=== PATIENT | male | born 1965 | race Caucasian/White ===

== ENCOUNTER 2021-09-01 09:15 | Inpatient (IN) | payer MEDICARE, OTHER ==
[~2021-09-01] VITALS: Ht 177.8 cm; Wt 59.0 kg
--- NOTE | 2021-09-01 09:30 | NUR ---
unable to do proper ekg on the pt, unable to hold still. will try later when pt is more comfortable.
[2021-09-01] MEDS ORDERED: PANTOPRAZOLE SODIUM 40 MG VIAL ONE ×4 (09:40→23:45)
[2021-09-01] MEDS ORDERED: ONDANSETRON 4 MG/2 ML VIAL ONE ×3 (09:41→16:04)
[2021-09-01] MEDS ORDERED: IV NORMAL SALINE 1000 ML BAG IV ONE (09:45)
[2021-09-01] MEDS ORDERED: ONDANSETRON 4 MG/2 ML VIAL IV ONE ×2 (09:45→10:00)
[2021-09-01] MEDS ORDERED: PANTOPRAZOLE SODIUM 40 MG VIAL IV ONE (09:45)
[2021-09-01] MEDS ORDERED: PANTOPRAZOLE SODIUM IV 80 MG in IV DEXTROSE 5% 100 ML IV ONE ×2 (10:00→13:45)
[2021-09-01 10:14] LABS: HEMATOCRIT 31.4 % (36.7-47.1); MEAN CORPUSCULAR HEMOGLOBIN 27.5 uug (23.8-33.4); MEAN CORPUSCULAR VOLUME 83.9 fL (73.0-96.2); PLATELET COUNT (AUTO) 327 K/uL (152-348)
[2021-09-01 10:20] LABS: CARBON DIOXIDE 34 mmol/L (21-32); CHLORIDE 99 mmol/L (98-107); CREATININE 0.8 mg/dL (0.6-1.3); GLUCOSE 121 mg/dL (74-106); POTASSIUM 4.1 mmol/L (3.5-5.1); UREA NITROGEN, BLOOD 45 mg/dL (7-18)
[2021-09-01 10:28] LABS: ALANINE AMINOTRANSFERASE 30 U/L (16-63); ALKALINE PHOSPHATASE 54 U/L (50-136); ASPARTATE AMINOTRANSFERASE 12 U/L (15-37); BILIRUBIN,DIRECT 0.1 mg/dL (0.0-0.2); BILIRUBIN,TOTAL 0.2 mg/dL (0.2-1.0); LIPASE 155 U/L (73-393); TOTAL PROTEIN, SERUM 6.3 g/dL (6.4-8.2)
[2021-09-01 10:29] LABS: ETHANOL < 3 MG/DL (0-0)
[2021-09-01 11:10] LABS: *BILIRUBIN,URIN NEGATIVE (NEGATIVE); *BLOOD, URINE NEGATIVE (NEGATIVE); *CLARITY,URINE CLEAR (CLEAR); *COLOR,URINE YELLOW (YELLOW); *KETONES,URINE TRACE (NEGATIVE); LEUKOCYTE ESTERASE ,URINE NEGATIVE (NEGATIVE); NITRITE, URINE NEGATIVE (NEGATIVE); UGLUCOSE NEGATIVE (NEGATIVE)
[2021-09-01 11:25] LABS: BACTERIA,URINE NONE SEEN /HPF (NONE SEEN); RBC,URINE NONE SEEN /HPF (0-3); SQUAMOUS EPITHELIAL CELL,UR FEW /HPF (NONE SEEN); WBC,URINE 0-3 /HPF (0-3)
[2021-09-01 11:26] LABS: *AMPHETAMINE, URINE NEGATIVE (NEGATIVE); *CANNABINOID, URINE POSITIVE (NEGATIVE); *COCCAINE, URINE NEGATIVE (NEGATIVE); *OPIATE, URINE NEGATIVE (NEGATIVE); *PHENCYCLIDINE SCREEN,URINE NEGATIVE (NEGATIVE)
[2021-09-01 12:20] LABS: HEMATOCRIT 23.5 % (36.7-47.1); MEAN CORPUSCULAR VOLUME 83.8 fL (73.0-96.2); PLATELET COUNT (AUTO) 364 K/uL (152-348)
--- NOTE | 2021-09-01 13:09 | NUR ---
PT REFUSED LUNCH AND SAID THAT HE NEEDS TO SLEEP.
[2021-09-01] MEDS ORDERED: REMEDY ESSENTIAL ZINC PASTE 113 GM TP PRN (13:45)
[2021-09-01] MEDS ORDERED: MAGNESIUM HYDROXIDE 30 ML LIQUID UDC PO PRN (13:45)
[2021-09-01] MEDS ORDERED: ONDANSETRON 4 MG/2 ML VIAL IV PRN (13:45)
[2021-09-01] MEDS ORDERED: ACETAMINOPHEN 325 MG TABLET PO PRN (13:45)
[2021-09-01] MEDS: PANTOPRAZOLE SODIUM IV 80 MG in IV DEXTROSE 5% 500 ML IV SCH (14:52)
[2021-09-01] MEDS ORDERED: MORPHINE SULFATE 4 MG/1 ML DISP.SYRIN ONE (16:03)
[2021-09-01] MEDS ORDERED: HYDROMORPHONE 2 MG/1 ML DISP.SYRIN ONE ×2 (16:08→16:15)
[2021-09-01 17:24] LABS: HEMATOCRIT 20.1 % (36.7-47.1)
--- NOTE | 2021-09-01 17:35 | NUR ---
Patient tranf. to CCU bed3. per MD hammer.
[2021-09-01 18:00] VITALS: BP 91/60
[2021-09-01] MEDS ORDERED: IV NS 1000 ML 1,000 ML IV ONE (18:30)
[2021-09-01 19:00] VITALS: BP 95/54
--- NOTE | 2021-09-01 19:00 | NUR ---
Received report. Patient is awake, alert, appears pale looking. Denies pain at this time. No signs of acute distress. LFA 20G with ongoing Protonix drip 80mg @50mls/hr, D5 1/2NS @75mls/hr. Body assessment done. Will continue to monitor closely.
--- NOTE | 2021-09-01 19:19 | NUR ---
While checking blood and informing patient he will be receiving blood unit. patient changes his mind is refusing blood. informed Irene right away of refusal of blood. She came to talk to patient of high risk of refusing blood. Patient continues to refuse the blood transfusion and informed him that he had been spoken to and obtain consent and did not state he did not want blood transfusion and continued to sign the consent with aknowledgment. Will attempt to ask again at a later time. he states he will think about having transfusion. Also states that he has never had a blood transfusion before in previous events of GI Bleeding and has been intubated before. He states no blood for now and that he will think about it.
--- NOTE | 2021-09-01 19:30 | NUR ---
spoke to patient again and informed of labs indicating that he continues to lose blood. patient still refuses blood. Patient agrees to change code status at this point. verified code status change with 2 other nurses at bedside and he agrees to DNR status.
[2021-09-01 20:00] VITALS: BP 100/61
[2021-09-01 20:41] LABS: HEMATOCRIT 15.6 % (36.7-47.1)
[2021-09-01 21:00] VITALS: BP 94/59
[2021-09-01] MEDS: IV D5 1/2 NS 1000 ML 1,000 ML IV PRN (21:00)
[2021-09-01 22:00] VITALS: BP 111/73
[2021-09-01 23:00] VITALS: BP 105/66
--- NOTE | 2021-09-01 23:30 | NUR ---
Spoke with Dr Anderson, report given. Asked patient for consent of upper GI endoscopy. Patient stated, "I will think about it. I am dealing my health in a holistic way." Dr Anderson made aware.
[2021-09-02] VITALS (12 sets, daily range): BP systolic 85–118; BP diastolic 50–72
[2021-09-02] MEDS: PANTOPRAZOLE SODIUM IV 80 MG in IV DEXTROSE 5% 500 ML IV SCH ×2 (00:01→10:22)
[2021-09-02 00:44] LABS: HEMATOCRIT 16.3 % (36.7-47.1)
--- NOTE | 2021-09-02 00:45 | NUR ---
Lab called and spoke with Gabriel regarding critical lab Hgb 5.5, Hct 16.3. Called [facility] and spoke with Dr Cotto re: critical labs and that patient refused to be transfused. Dr Cotto made aware with no new orders.
--- NOTE | 2021-09-02 03:17 | NUR ---
Offered patient to give bath, however, patient refused stating, "No. I'm fine."
--- NOTE | 2021-09-02 04:00 | NUR ---
Patient refused to be drawn blood.
--- NOTE | 2021-09-02 06:22 | NUR ---
Patient refused to be placed back on the monitor.
--- NOTE | 2021-09-02 06:45 | NUR ---
Patient placed back on the monitor, HR=76. NAD.
[2021-09-02 08:44] LABS: MEAN CORPUSCULAR HEMOGLOBIN 28.4 uug (23.8-33.4); MEAN CORPUSCULAR VOLUME 84.5 fL (73.0-96.2); PLATELET COUNT (AUTO) 266 K/uL (152-348)
[2021-09-02 08:51] LABS: HEMATOCRIT 16.3 % (36.7-47.1)
[2021-09-02 08:53] LABS: CARBON DIOXIDE 29 mmol/L (21-32); CHLORIDE 104 mmol/L (98-107); CREATININE 0.6 mg/dL (0.6-1.3); GLUCOSE 112 mg/dL (74-106); HEMATOCRIT 16.5 % (36.7-47.1); MAGNESIUM 1.8 mg/dL (1.8-2.4); PHOSPHOROUS 2.8 mg/dL (2.5-4.9); POTASSIUM 3.7 mmol/L (3.5-5.1); UREA NITROGEN, BLOOD 24 mg/dL (7-18)
[2021-09-02 09:03] LABS: THYROID STIMULATING HORMONE 1.374 mIU/mL (0.358-3.740)
[2021-09-02] MEDS: IV D5 1/2 NS 1000 ML 1,000 ML IV PRN (10:14)
--- NOTE | 2021-09-02 10:50 | NUR ---
Attending Rose Bonilla in the unit to examine pt. care plan discussed with pt. and at this time patient become agitated aggressive and threatening staff and refused treatment. Patient educated on the need to have a blood transfusion as well as to have and endoscopy done, despite all education patient refusing.
--- NOTE | 2021-09-02 11:11 | NUR ---
patient is refusing EGD. Irene Receivable Manager spoke to patient, and patient becomming agitated yelling out profanity. joey benjamin called.
--- NOTE | 2021-09-02 11:20 | NUR ---
Patient remains restless agitated and screaming yelling and becomes a disturbance to other patient. removing everything and refusing to be under ICU monitoring Attending still in the unit and joey tadeo called, after pt. become increasingly aggressive and refusing treatment. Joey tadeo called and it was attended by nursing pot lining supervisor, 2 Security guards. 2 rt's. Patient one more time educated on the need to cooperate with medical treatment but pt. now accusing medical staff of been spies and wanting to introduce a camera into his body to monitor his every move.
--- NOTE | 2021-09-02 11:24 | NUR ---
Patient refusing to leave facility after refusing treatment, and continues to be aggressive. With security officers in the unit He continues to refuse treatment and also to sign AMA form and been a disturbance to other patients and visitors. With dispatch supervisor and attending request to call, [employer] to control and escort pt. out.
--- NOTE | 2021-09-02 11:25 | NUR ---
patient is yelling called code cassidy, security and staff at bedside primary doctor as well still in the unit. patient is being escorted out and patient given AMA form that he is also refusing to sign. Now Demanding to call police because he is refusing to be escorted out.
[2021-09-02] MEDS ORDERED: HALOPERIDOL LACTATE 5 MG/1 ML VIAL IM PRN (11:30)
--- NOTE | 2021-09-02 11:35 | NUR ---
patient is becoming increasingly difficult and is having violent verbal outburst. police called room was closed off to prevent further agitation
--- NOTE | 2021-09-02 11:50 | NUR ---
MARLENI in the unit report given to officer Charla Carmen, Officer Ward. with them present and with attending in the unit patient given a list of available [facility], and offered vegetarian food. Patient still refusing treatment and refusing to leave facility.
--- NOTE | 2021-09-02 11:57 | NUR ---
police arrived and are talking to patient verifying information. marquis called to speak to officers as well.
--- NOTE | 2021-09-02 12:24 | NUR ---
MARLENI eyewear manufacturing supervisor officer Zeb in the unit and report given to him by his officers and attending who remains in the unit. Nursing eyewear manufacturing supervisor in.
--- NOTE | 2021-09-02 12:39 | NUR ---
At this time pt. escorted out by [employer] pt. provided with food clothes and shoes also a list of shelters where He can check himself in before 1500. Patient left ambulatory refusing to any treatment until the end.
--- NOTE | 2021-09-02 12:45 | NUR ---
patient was escorted out by lapd at this time. homeless packet was given to patient food and clothing was provided.
[2021-09-06] MEDS ORDERED: FERR325T28 PO (15:55)
[2021-09-06] MEDS ORDERED: SUCR1ORA PO (15:55)
[2021-09-06] MEDS ORDERED: PANT40TA2 PO (15:55)
== END 2021-09-02 13:25 | disposition left against medical advice (07) | DRG 378 ==
LOC: ER 09:15 → TRANSITION 12:48 → CCU 17:11
PROVIDERS: ADMIT Registered Nurse; ATTEND Registered Nurse
DX: K92.2 Gastrointestinal hemorrhage, unspecified (principal); D62 Acute posthemorrhagic anemia; E44.1 Mild protein-calorie malnutrition; Z68.1 Body mass index [BMI] 19.9 or less, adult; D72.829 Elevated white blood cell count, unspecified; F17.210 Nicotine dependence, cigarettes, uncomplicated; Z59.00 Homelessness unspecified; Z87.11 Personal history of peptic ulcer disease; Z91.19 Patient's noncompliance with other medical treatment and regimen; F15.10 Other stimulant abuse, uncomplicated; F12.10 Cannabis abuse, uncomplicated; Z71.6 Tobacco abuse counseling; F19.10 Other psychoactive substance abuse, uncomplicated; Z20.822 Contact with and (suspected) exposure to COVID-19
CPT/HCPCS: 36415; 71045; 83690; 83735; 84100; 84443; 84484; 85018; 85025; 86850; 86900; 86901; 86920; 93005; A4663; C9113; G0378; G0480; J1170; J2270; J2405; J7040; J7060; P9016

== ENCOUNTER 2021-09-03 17:41 | Inpatient (IN) | payer MEDICARE, OTHER ==
[~2021-09-03] VITALS: Ht 175.3 cm; Wt 59.0 kg
[2021-09-03] MEDS ORDERED: IV NORMAL SALINE 1000 ML BAG IV ONE (18:15)
[2021-09-03] MEDS ORDERED: PANTOPRAZOLE SODIUM 40 MG VIAL IV ONE (18:15)
[2021-09-03] MEDS ORDERED: MAG HYDROX/AL HYDROX/SIMETH 30 ML LIQUID UDC PO ONE (18:15)
[2021-09-03] MEDS ORDERED: LIDOCAINE VISCUS 2% 15 ML UDC MM ONE (18:15)
[2021-09-03] MEDS ORDERED: ONDANSETRON 4 MG/2 ML VIAL IV ONE (18:15)
[2021-09-03] MEDS ORDERED: PANTOPRAZOLE SODIUM 40 MG VIAL ONE (18:27)
[2021-09-03] MEDS ORDERED: ONDANSETRON 4 MG/2 ML VIAL ONE (18:27)
[2021-09-03] MEDS ORDERED: LIDOCAINE VISCUS 2% 15 ML UDC ONE (18:28)
[2021-09-03] MEDS ORDERED: MAG HYDROX/AL HYDROX/SIMETH 30 ML LIQUID UDC ONE (18:28)
--- NOTE | 2021-09-03 19:00 | NUR ---
PT IS IN ROOM #4A. DR SAAB EVALUATED THE PT.
[2021-09-03 19:01] LABS: MEAN CORPUSCULAR HEMOGLOBIN 28.7 uug (23.8-33.4); MEAN CORPUSCULAR VOLUME 85.1 fL (73.0-96.2); PLATELET COUNT (AUTO) 332 K/uL (152-348)
[2021-09-03 19:11] LABS: CARBON DIOXIDE 30 mmol/L (21-32); CHLORIDE 104 mmol/L (98-107); CREATININE 0.6 mg/dL (0.6-1.3); GLUCOSE 108 mg/dL (74-106); POTASSIUM 3.4 mmol/L (3.5-5.1); UREA NITROGEN, BLOOD 26 mg/dL (7-18)
[2021-09-03 19:17] LABS: ALANINE AMINOTRANSFERASE 26 U/L (16-63); ALKALINE PHOSPHATASE 45 U/L (50-136); ASPARTATE AMINOTRANSFERASE 12 U/L (15-37); BILIRUBIN,DIRECT < 0.1 mg/dL (0.0-0.2); BILIRUBIN,TOTAL 0.1 mg/dL (0.2-1.0); LIPASE 377 U/L (73-393); TOTAL PROTEIN, SERUM 5.6 g/dL (6.4-8.2)
--- NOTE | 2021-09-03 21:00 | NUR ---
Rose Bonilla BAGGER MEAT into eval patient.
--- NOTE | 2021-09-03 21:42 | NUR ---
Patient agreed to get blood transfusion and signed consent.
[2021-09-03 23:45] LABS: NEUTROPHILS % (MANUAL) 0 % (42-75)
--- NOTE | 2021-09-04 00:58 | NUR ---
Started 1st unit of PRBC at this time.
--- NOTE | 2021-09-04 02:28 | NUR ---
Patient tolerating blood transfusion with no reaction at this time. No distress noted.
--- NOTE | 2021-09-04 03:22 | NUR ---
PRBC infusion completed with no reaction noted.
--- NOTE | 2021-09-04 04:15 | NUR ---
TRANSFERED PATIENT TO 3RD FLOOR VIA WHEELCHAIR WITH NO DISTRESS NOTED.
--- NOTE | 2021-09-04 04:20 | NUR ---
RECEIVED PATIENT FROM ER. PATIENT IS A/O X3. DENIES ANY PAIN UPON ADMISSION TO THE FLOOR. NO RESP. DISTRESS NOTED. H/L INTACT AND PATENT. ORIENTED PATIENT TO ROOM AND CALL LIGHT. CALL LIGHT IN REACH. ALL NEEDS ATTENDED. WILL CONTINUE TO MONITOR AND ASSES. PLACED ON TELE SR.
--- NOTE | 2021-09-04 05:05 | NUR ---
PATIENT ASLEEP IN BED, EASILY AROUSABLE. BP 73/39. PATIENT IS ASYMPTOMATIC. ALL OTHER VSS. CALLED OUT TO MD FOR FURTHER ORDERS. ALL NEEDS ATTENDED.
--- NOTE | 2021-09-04 05:20 | NUR ---
SPOKE WITH DR. PORTILLO IN REGARDS TO ADMISSION ORDERS. INFORMED MD THAT PATIENTS BLOOD PRESSURE IS LOW 73/39. ALL NEEDS ATTENDED.
[2021-09-04] MEDS ORDERED: ACETAMINOPHEN 325 MG TABLET PO PRN (05:30)
[2021-09-04] MEDS ORDERED: REMEDY ESSENTIAL ZINC PASTE 113 GM TP PRN (05:30)
[2021-09-04] MEDS ORDERED: ZOLPIDEM 5 MG TABLET PO PRN (05:30)
[2021-09-04] MEDS ORDERED: ONDANSETRON 4 MG/2 ML VIAL IV PRN (05:30)
[2021-09-04] MEDS ORDERED: IV D5 1/2 NS 1000 ML 1,000 ML IV PRN (05:30)
[2021-09-04] MEDS ORDERED: MAGNESIUM HYDROXIDE 30 ML LIQUID UDC PO PRN (05:30)
[2021-09-04 06:51] VITALS: BP 73/39
[2021-09-04 06:55] VITALS: BP 91/49
[2021-09-04 07:09] LABS: MEAN CORPUSCULAR HEMOGLOBIN 29.2 uug (23.8-33.4)
[2021-09-04 07:11] LABS: MEAN CORPUSCULAR VOLUME 84.2 fL (73.0-96.2); PLATELET COUNT (AUTO) 308 K/uL (152-348)
[2021-09-04 07:28] LABS: BILIRUBIN,TOTAL 0.4 mg/dL (0.2-1.0); CREATININE 0.7 mg/dL (0.6-1.3); POTASSIUM 3.8 mmol/L (3.5-5.1); TOTAL PROTEIN, SERUM 5.1 g/dL (6.4-8.2)
[2021-09-04] MEDS ORDERED: PANTOPRAZOLE SODIUM 40 MG VIAL IV SCH (09:00)
--- NOTE | 2021-09-04 09:25 | NUR ---
Dr. Mccullough notified of Hgb 5.9 and Hct 17.0 no new order at this time.
--- NOTE | 2021-09-04 10:21 | NUR ---
Patient refused to wear his tele monitor. Dr. Mccullough made aware.
--- NOTE | 2021-09-04 11:25 | NUR ---
Went to patient's room to get consent for blood transfusion and noticed his IV pole on the floor dripping and IV tubing cut. Patient refused to have the IV tubing replaced and to resume IV fluids. He also refused blood transfusion. He said he does not need them. Explained risks and benefits but patient still refused and he said get out of the room. Patient is verbally abusive. Notified Dr. Mccullough, with no new order and said call security if necessary. Maintained patient on NPO.
--- NOTE | 2021-09-04 12:05 | NUR ---
Received a call from Dr. Anderson and said to secure consent for EGD and keep patient on NPO. Informed the patient of MD's planned procedure and to to be kept on NPO and patient verbalized understanding and is agreeable.
[2021-09-04 12:08] VITALS: BP 124/57
--- NOTE | 2021-09-04 12:30 | NUR ---
Patient went walking around the hallway then just grabbed a tray from the food cart. Reminded patient of the need to be kept on NPO prior to EGD but patient kept ignoring nurse's explanations. Patient continues to be verbally abusive. Surgery made aware hence procedure cancelled. Dr. Mccullough informed.
[2021-09-04 16:20] VITALS: BP 135/68
--- NOTE | 2021-09-04 18:00 | NUR ---
Noticed patient pulled out his IV line. Offered patient to check and cover the IV site but patient refused and he stated "No, get the fuck out of here. I don't need you."
--- NOTE | 2021-09-04 19:15 | NUR ---
RECEIVED PATIENT AGITATED AND WANT TO GO TO SMOKE DOWN STAIR. CALLED GUARD TO ASSIST WITH THE SITUATION. PATIENT WENT BACK TO HIS ROOM. I TRIED TO TALK TO HIM BUT HE WAS FRUSTRATED AND ANGRY.
--- NOTE | 2021-09-04 19:52 | NUR ---
patient left the hospital. Patient refused to sign AMA.
[2021-09-06] MEDS ORDERED: FERR325T28 PO (15:55)
[2021-09-06] MEDS ORDERED: SUCR1ORA PO (15:55)
[2021-09-06] MEDS ORDERED: PANT40TA2 PO (15:55)
== END 2021-09-04 19:52 | disposition left against medical advice (07) | DRG 377 ==
LOC: ER 17:45 → TELE3 09-04 04:03
PROVIDERS: ADMIT Internal Medicine; ATTEND Internal Medicine
PROC: 30233N1 Transfusion of Nonautologous Red Blood Cells into Peripheral Vein, Percutaneous Approach (ICD-10-PCS; principal; 2021-09-04)
DX: K92.2 Gastrointestinal hemorrhage, unspecified (principal); E43 Unspecified severe protein-calorie malnutrition; D62 Acute posthemorrhagic anemia; F20.0 Paranoid schizophrenia; Z68.1 Body mass index [BMI] 19.9 or less, adult; E87.6 Hypokalemia; F20.9 Schizophrenia, unspecified; Z59.00 Homelessness unspecified; Z87.11 Personal history of peptic ulcer disease; Z91.19 Patient's noncompliance with other medical treatment and regimen; F19.10 Other psychoactive substance abuse, uncomplicated; Z20.822 Contact with and (suspected) exposure to COVID-19
CPT/HCPCS: 36415; 70030-TC; 83690; 85025; 85730; 86920; 93005; C9113; G0378; J2405; J7040; P9016

== ENCOUNTER 2021-09-05 00:53 | Inpatient (IN) | payer MEDICARE, OTHER ==
[~2021-09-05] VITALS: Ht 175.3 cm; Wt 59.6 kg
--- NOTE | 2021-09-05 02:36 | NUR ---
pt in room 4a states he is here for an endoscopy, he left the hospital a on 09/04/2021 at 2000 hours.
[2021-09-05] MEDS ORDERED: PANTOPRAZOLE SODIUM IV 80 MG in IV DEXTROSE 5% 100 ML IV ONE (03:00)
[2021-09-05] MEDS ORDERED: PANTOPRAZOLE SODIUM 40 MG VIAL ONE (03:06)
[2021-09-05 04:14] LABS: MEAN CORPUSCULAR HEMOGLOBIN 28.8 uug (23.8-33.4); PLATELET COUNT (AUTO) 344 K/uL (152-348)
[2021-09-05 04:19] LABS: HEMATOCRIT 17.6 % (36.7-47.1)
[2021-09-05 04:29] LABS: CARBON DIOXIDE 30 mmol/L (21-32); CHLORIDE 104 mmol/L (98-107); CREATININE 0.6 mg/dL (0.6-1.3); GLUCOSE 111 mg/dL (74-106); POTASSIUM 3.3 mmol/L (3.5-5.1); UREA NITROGEN, BLOOD 17 mg/dL (7-18)
[2021-09-05] MEDS ORDERED: POTASSIUM BICARBONATE/CIT AC 25 MEQ TABLET.EFF PO ONE (05:00)
--- NOTE | 2021-09-05 05:11 | NUR ---
call to [facility] for admission.
--- NOTE | 2021-09-05 05:15 | NUR ---
Dr. Leyva called back to speak with Dr. Post for admission.
[2021-09-05] MEDS ORDERED: POTASSIUM BICARBONATE/CIT AC 25 MEQ TABLET.EFF ONE (05:20)
[2021-09-05] MEDS ORDERED: IV NS 1000 ML 1,000 ML IV SCH (05:30)
[2021-09-05] MEDS ORDERED: ACETAMINOPHEN 325 MG TABLET PO PRN (05:30)
[2021-09-05] MEDS ORDERED: hydrALAZINE HCL 20 MG/1 ML VIAL IV PRN (05:30)
[2021-09-05] MEDS ORDERED: ONDANSETRON 4 MG/2 ML VIAL IV PRN (05:30)
[2021-09-05] MEDS ORDERED: MORPHINE SULFATE 2 MG/1 ML DISP.SYRIN IV PRN (05:30)
[2021-09-05 06:29] LABS: HEMATOCRIT 18.2 % (36.7-47.1)
--- NOTE | 2021-09-05 07:10 | NUR ---
Recieved pt in bed, resting w/ both eyes closed. NAD noted, continue w/ tele monitoring.
--- NOTE | 2021-09-05 09:14 | NUR ---
Pt standup w/ steady gait to use the urinal. Denies pain, nausea and vomitting at this time.
--- NOTE | 2021-09-05 12:00 | NUR ---
Patient is resting comfortably in bed with eyes closed, NAD noted.
[2021-09-05] MEDS ORDERED: LIDOCAINE-MPF 2% 5 ML VIAL ONE (12:20)
[2021-09-05] MEDS ORDERED: PROPOFOL 200 MG/20 ML BOTTLE ONE (12:20)
--- NOTE | 2021-09-05 13:15 | NUR ---
Per nursing supervisor properties pt will be staying in ER as admitted pt. No bed/nurse available for m/s at the moment.
--- NOTE | 2021-09-05 14:20 | NUR ---
Pt requested to have ice chips. DR Jones made aware.
[2021-09-05 14:58] LABS: HEMATOCRIT 17.6 % (36.7-47.1)
--- NOTE | 2021-09-05 15:42 | NUR ---
Dr Pinto is at the bedside speaking to the pt.
--- NOTE | 2021-09-05 16:01 | NUR ---
Pt refused blood transfusion, when I asked and Dr Pinto asked.
[2021-09-05] MEDS ORDERED: ONDANSETRON 4 MG/2 ML VIAL ONE (16:28)
[2021-09-05] MEDS ORDERED: MORPHINE SULFATE 2 MG/1 ML DISP.SYRIN ONE (16:28)
[2021-09-05] MEDS ORDERED: ONDANSETRON 4 MG/2 ML VIAL IV ONE (17:15)
[2021-09-05] MEDS ORDERED: IV NS 1000 ML 1,000 ML IV PRN (17:57)
[2021-09-05 20:00] VITALS: BP 100/47
--- NOTE | 2021-09-05 20:38 | NUR ---
Report given to Amanda
--- NOTE | 2021-09-05 21:10 | NUR ---
Received pt awake, alert and oriented x4. Pt in no acute distress. DX: GI bleed. Under the care of Riaz Pinto DNP Belonging list done. Admission process and care plan initiated. [facility] assessment done. Safety and comfort provided. Will continue to monitor.
--- NOTE | 2021-09-05 21:19 | NUR ---
pt [facility] room [address] [facility].
[2021-09-05] MEDS ORDERED: EPOETIN ALFA 20,000 UNIT/ML ML SQ ONE (21:30)
[2021-09-05] MEDS: PANTOPRAZOLE SODIUM 40 MG VIAL IV SCH (22:00)
[2021-09-05] MEDS ORDERED: EPOETIN ALFA-EPBX 10,000 UNIT/ML VIAL ONE (22:12)
[2021-09-05 22:27] LABS: HEMATOCRIT 20.3 % (36.7-47.1)
--- NOTE | 2021-09-05 23:00 | NUR ---
Lab called and notify staff that pt hemoglobin is 6.9, Hematocrit 20.3 . Notify DrLoren electronics lead. aware and no new orders as per pt refuse blood transfusion.
--- NOTE | 2021-09-05 23:07 | NUR ---
Notify front desk receptionist at 2248[facility] that pt stating he smokes and wants some nicotine patch and pt requesting for sleeping medication. Riaz Pinto DNP ordered Nicotine patch 21mg Q24 and Ambien 10 mg po q HS
[2021-09-05] MEDS ORDERED: ZOLPIDEM 5 MG TABLET PO PRN (23:15)
[2021-09-05] MEDS: NICOTINE 21 MG/24HR PATCH TD SCH (23:30)
--- NOTE | 2021-09-06 03:00 | NUR ---
Pt woke up and started yelling on his room. Pt shouting to nobody inside his room. Needs reorientation. Pt in no acute distress. Will continue to monitor.
[2021-09-06 04:00] VITALS: BP 106/55
--- NOTE | 2021-09-06 06:08 | NUR ---
Pt slept intermittently. Pt in no acute distress. Iv intact. Pt is afebrile. Pt medication given and pt tolerated it well.Pt needs reorientation. Safety and comfort provided. Will endorse to incoming nurse for continuity of care.
[2021-09-06 06:51] LABS: MEAN CORPUSCULAR VOLUME 84.9 fL (73.0-96.2); PLATELET COUNT (AUTO) 391 K/uL (152-348)
[2021-09-06 07:04] LABS: HEMATOCRIT 17.2 % (36.7-47.1)
[2021-09-06 07:16] LABS: BILIRUBIN,TOTAL 0.1 mg/dL (0.2-1.0); CREATININE 0.7 mg/dL (0.6-1.3); PHOSPHOROUS 4.6 mg/dL (2.5-4.9); POTASSIUM 4.1 mmol/L (3.5-5.1); TOTAL PROTEIN, SERUM 4.9 g/dL (6.4-8.2)
--- NOTE | 2021-09-06 07:21 | NUR ---
RECEIVED RESULT OF hEMOGLOBIN 5.9 AND HEMATOCRIT 17.2. PT IN NO ACUTE DISTRESS. WILL ENDORSE TO INCOMING NURSE.
--- NOTE | 2021-09-06 07:30 | NUR ---
Notified Millie of pt critical labs Hgb 5.9 and Hct 17.2 with NNO Pt schedule for EGD today
[2021-09-06] MEDS: NICOTINE 21 MG/24HR PATCH TD SCH (09:28)
[2021-09-06] MEDS: PANTOPRAZOLE SODIUM 40 MG VIAL IV SCH (09:28)
--- NOTE | 2021-09-06 10:00 | NUR ---
DX: GI bleed. Under the care of Riaz Pinto DNP Pt was picker / packer by 2 OR nurses for a EGD procedure, consent was signed pt remain NPO since Midnight LFA IV site # 18 intact . Safety and comfort provided. Will continue to monitor.
[2021-09-06] MEDS ORDERED: MIDAZOLAM HCL 2 MG/2 ML VIAL ONE (10:29)
[2021-09-06 12:12] VITALS: BP 101/65
--- NOTE | 2021-09-06 13:00 | NUR ---
PATIENT STABLE AND back TO THE UNIT REPORT FROM OR NURSE.RESULTS SEVERE ESOPHAGITIS AND L HIATAL HERNIA ORDER FOR RESUME MEDS AND REGULAR DIET
[2021-09-06] MEDS: SOD FERRIC GLUC COMPLX/SUCROSE 125 MG in IV NORMAL SALINE 100 ML IV SCH ×2 (14:00→14:05)
--- NOTE | 2021-09-06 14:00 | NUR ---
PT REFUSED THE FERRLECIT 125 MG HE GOT VERY UPSET STATED IT HAS BLOOD IN IT I WILL NOT TAKE IT, HE PULL OUT THE IV ACCESS AND AND GOT AGGRESSIVE AND EXPLAIN THAT HE NEED IT AND IS JUST IRON TO HELP INCREASE IS HGB
--- NOTE | 2021-09-06 14:25 | NUR ---
Notified Millie of pt critical labs Hgb 6.9 and Hct 20.9 with NNO.
[2021-09-06 14:57] LABS: HEMATOCRIT 20.9 % (36.7-47.1)
[2021-09-06 15:13] VITALS: BP 113/72
[2021-09-06] MEDS ORDERED: PANT40TA2 PO (15:55)
[2021-09-06] MEDS ORDERED: FERR325T28 PO (15:55)
[2021-09-06] MEDS ORDERED: SUCR1ORA PO (15:55)
--- NOTE | 2021-09-06 18:29 | NUR ---
Pt was discharge to self, recourse information for further assist given discharge instructions and personal belongings given to patient ID band and IV site was removed Pt left self ambulatory .
== END 2021-09-06 18:30 | disposition home or self-care (01) | DRG 369 ==
LOC: ER 00:58 → TRANSITION 17:51 → MEDSURG3 20:54
PROVIDERS: ADMIT Internal Medicine; ATTEND Nurse Practitioner Acute Care
PROC: 0DJ08ZZ Inspection of Upper Intestinal Tract, Via Natural or Artificial Opening Endoscopic (ICD-10-PCS; principal; 2021-09-06)
DX: K21.01 Gastro-esophageal reflux disease with esophagitis, with bleeding (principal); D62 Acute posthemorrhagic anemia; K44.9 Diaphragmatic hernia without obstruction or gangrene; Z59.01 Sheltered homelessness; Z91.19 Patient's noncompliance with other medical treatment and regimen; F20.9 Schizophrenia, unspecified; Z87.11 Personal history of peptic ulcer disease; Z87.19 Personal history of other diseases of the digestive system; Z20.822 Contact with and (suspected) exposure to COVID-19
CPT/HCPCS: 36415; 84100; 85018; 85025; A4663; C9113; G0378; J0885; J2250; J2270; J2405; J2916; J3490; J7040

== ENCOUNTER 2021-09-07 20:02 | Emergency (ER) | payer MEDICARE, OTHER ==
[~2021-09-07 20:02] MED LIST: FERR325T28 PO; PANT40TA2 PO; SUCR1ORA PO
--- NOTE | 2021-09-07 20:36 | NUR ---
Patient left without being seen by ER physician, Dr. Melgar made aware.
== END 2021-09-07 20:40 | disposition left against medical advice (07) ==
LOC: ER 20:22
DX: Z53.21 Procedure and treatment not carried out due to patient leaving prior to being seen by health care provider (principal)

== ENCOUNTER 2021-09-08 03:51 | Emergency (ER) | payer MEDICARE, OTHER ==
[~2021-09-08] VITALS: Ht 177.8 cm; Wt 59.0 kg
[2021-09-08] MEDS ORDERED: MORPHINE SULFATE 2 MG/1 ML DISP.SYRIN IV ONE (04:00)
[2021-09-08] MEDS ORDERED: PANTOPRAZOLE SODIUM 40 MG VIAL IV ONE (04:00)
[2021-09-08] MEDS ORDERED: PANTOPRAZOLE SODIUM IV 80 MG in IV DEXTROSE 5% 500 ML IV ONE (04:00)
[2021-09-08] MEDS ORDERED: CEFTRIAXONE 1 G in IV DEXTROSE 5% 50 ML IV ONE (04:00)
[2021-09-08] MEDS ORDERED: ZIPRASIDONE MESYLATE 20 MG VIAL IM ONE ×2 (04:00→04:19)
[2021-09-08] MEDS ORDERED: PANTOPRAZOLE SODIUM 40 MG VIAL ONE (04:19)
[2021-09-08] MEDS ORDERED: CEFTRIAXONE /D5W 50ML IVPB **ER PYXIS IV ONE (04:19)
[2021-09-08 04:34] LABS: MEAN CORPUSCULAR HEMOGLOBIN 28.9 uug (23.8-33.4); MEAN CORPUSCULAR VOLUME 85.6 fL (73.0-96.2); PLATELET COUNT (AUTO) 451 K/uL (152-348)
[2021-09-08 04:50] LABS: ALANINE AMINOTRANSFERASE 31 U/L (16-63); ALKALINE PHOSPHATASE 63 U/L (50-136); ASPARTATE AMINOTRANSFERASE 18 U/L (15-37); BILIRUBIN,DIRECT < 0.1 mg/dL (0.0-0.2); BILIRUBIN,TOTAL 0.2 mg/dL (0.2-1.0); CARBON DIOXIDE 34 mmol/L (21-32); CHLORIDE 101 mmol/L (98-107); CREATININE 0.8 mg/dL (0.6-1.3); GLUCOSE 97 mg/dL (74-106); LIPASE 224 U/L (73-393); POTASSIUM 3.8 mmol/L (3.5-5.1); TOTAL PROTEIN, SERUM 6.6 g/dL (6.4-8.2); UREA NITROGEN, BLOOD 32 mg/dL (7-18)
[2021-09-08 04:56] LABS: HEMATOCRIT 19.4 % (36.7-47.1)
[2021-09-08 07:02] LABS: BAND % (MANUAL) 2 % (0-10); EOSINOPHILS % (MANUAL) 1 % (0-8); LYMPHOCYTES % (MANUAL) 41 % (20-40); MONOCYTES % (MANUAL) 3 % (2-10); NEUTROPHILS % (MANUAL) 53 % (42-75)
--- NOTE | 2021-09-08 07:02 | NUR ---
Patient does not wish to proceed with medical care recommended by Dr. Melgar. Patient given information related to possible complications, up to and including , which could occur as a result of leaving the hospital at this time. Patient verbalizes understanding of risks involved due to leaving against medical advice. Patient has signed AMA form.
[2021-09-08 07:04] VITALS: BP 107/64
== END 2021-09-08 07:05 | disposition left against medical advice (07) ==
LOC: ER 03:58 → MERGE 03:58 → ER 07:05
DX: R10.13 Epigastric pain (principal); D64.9 Anemia, unspecified; F20.9 Schizophrenia, unspecified; Z59.00 Homelessness unspecified; Z20.822 Contact with and (suspected) exposure to COVID-19; Z53.29 Procedure and treatment not carried out because of patient's decision for other reasons
CPT/HCPCS: 36415; 80048; 80076; 83605; 83690; 84484; 85007; 85025; 85730; 86850; 86900; 86901; 86920; 87040 ×2; 87426; 93005; 96365; 96372; 96375; 99284; C9113 ×2; J0696; J3486; J7060; 70030-TC; A4663

== ENCOUNTER 2021-09-08 15:08 | Inpatient (IN) | payer MEDICARE, OTHER ==
[~2021-09-08] VITALS: Ht 177.8 cm; Wt 58.5 kg
[2021-09-08] MEDS ORDERED: MAG HYDROX/AL HYDROX/SIMETH 30 ML LIQUID UDC PO ONE (15:30)
[2021-09-08] MEDS ORDERED: MAG HYDROX/AL HYDROX/SIMETH 30 ML LIQUID UDC ONE (15:35)
--- NOTE | 2021-09-08 16:16 | NUR ---
Art, psych team pet trainer is enroute.
--- NOTE | 2021-09-08 17:49 | NUR ---
Art placed pt on hold for GD. Will be admitted to psych.
--- NOTE | 2021-09-08 18:54 | NUR ---
Called tire building supervisor to provide 1:1 sitter, said she will call back.
--- NOTE | 2021-09-08 19:06 | NUR ---
RECEIVED REPORT FROM FER (REGISTRY), PT NOTED TO BE IN BED, ASLEEP RESTING COMFORTABLY. BREATHING EVEN AND UNLABORED. VSS. BED IN LOWEST POSITION FOR SAFETY PRECAUTIONS.
--- NOTE | 2021-09-08 21:52 | NUR ---
GAVE REPORT TO JULY IN MHU.
--- NOTE | 2021-09-08 22:10 | NUR ---
Pt. admitted to mhu , under care of Dr. Chávez and PSYCHIATRIC TECHNICIAN ASSISTANT James Dx: psychosis, 5150 hold GD Belongs List completed Pt admitted in stable condition. Denies any pain/discomfort. Denies SI, denies any visual and/or auditory hallucinations. Noted to be calm and cooperative following directions. A/O x3, no changes in LOC.
[2021-09-08 22:30] VITALS: BP 107/51
[2021-09-08 22:36] VITALS: BP 107/51
[2021-09-08] MEDS ORDERED: MAG HYDROX/AL HYDROX/SIMETH 30 ML LIQUID UDC PO PRN (22:45)
[2021-09-08] MEDS ORDERED: MAGNESIUM HYDROXIDE 30 ML LIQUID UDC PO PRN (22:45)
--- NOTE | 2021-09-08 22:47 | NUR ---
GPS Admission Notes: Admitted 56 y/o male patient to MHU, on 5150 gravely disabled d/t depression and hallucination. Upon face to face evaluation, patient is looking unkempt, A&ox2, calm and cooperative. Patient states to be hearing minimal harmless voices in his head. Patient admits to be using recreational drugs marijuana on daily basis and meth on occasions. Oriented to unit and unit rules, verbalized understanding. Head to toe assessment done, skin appears to be intact. Advisement and patient rights handbook given to patient. Ambien given as per patient request with effectivity. safety strategies in place. close monitoring done.
[2021-09-08] MEDS: ZOLPIDEM 5 MG TABLET PO PRN (23:14)
[2021-09-09 07:33] VITALS: BP 92/43
[2021-09-09] MEDS: NICOTINE 14 MG/24HR PATCH TD SCH (08:16)
[2021-09-09] MEDS: QUETIAPINE FUMARATE 25 MG TABLET PO SCH ×2 (11:11→17:17)
[2021-09-09 16:42] VITALS: BP 90/45
[2021-09-09 19:40] VITALS: BP 90/47
[2021-09-09] MEDS: FERROUS SULFATE 325 MG TABEC PO SCH (19:52)
[2021-09-09] MEDS: PANTOPRAZOLE SODIUM 40 MG TABLET.DR PO SCH (19:52)
[2021-09-09] MEDS: LORAZEPAM 1 MG TABLET PO PRN (20:09)
[2021-09-09] MEDS: QUETIAPINE FUMARATE 100 MG TABLET PO SCH (20:12)
[2021-09-09] MEDS: SUCRALFATE 1 G/10 ML LIQUID UDC PO SCH (20:48)
--- NOTE | 2021-09-10 05:24 | NUR ---
Received this patient upside down in the wrong bed. The patient was responding to internal stimuli. The floor was covered with food and the patient would not make eye contact with this marine underwriter. Routine medications were given without difficulty, and the patient ate a snack. Total sleep hours are 5.45 so far. The patient has poor insight, poor judgement and is an AWOL risk. B/P continues to be low but pulse remains in normal limits. Fluids encouraged. Safety Stratiges in place. No acute distress. Monitoring for s/s of GI bleeding. Urine specimen sent to lab per MD order.
[2021-09-10 05:41] LABS: *AMPHETAMINE, URINE NEGATIVE (NEGATIVE); *CANNABINOID, URINE POSITIVE (NEGATIVE); *COCCAINE, URINE NEGATIVE (NEGATIVE); *OPIATE, URINE NEGATIVE (NEGATIVE); *PHENCYCLIDINE SCREEN,URINE NEGATIVE (NEGATIVE)
[2021-09-10] MEDS: NICOTINE 14 MG/24HR PATCH TD SCH (08:01)
[2021-09-10] MEDS: LORAZEPAM 1 MG TABLET PO PRN (08:01)
[2021-09-10] MEDS: PANTOPRAZOLE SODIUM 40 MG TABLET.DR PO SCH ×2 (08:02→16:53)
[2021-09-10] MEDS: FERROUS SULFATE 325 MG TABEC PO SCH ×2 (08:02→16:53)
[2021-09-10] MEDS: QUETIAPINE FUMARATE 25 MG TABLET PO SCH ×2 (08:02→16:53)
[2021-09-10 08:03] VITALS: BP 124/70
[2021-09-10] MEDS: SUCRALFATE 1 G/10 ML LIQUID UDC PO SCH ×4 (08:58→20:27)
[2021-09-10] MEDS: ENSURE WITH FIBER 237 ML LIQUID (CHOCOLATE) PO SCH (11:54)
--- NOTE | 2021-09-10 15:24 | NUR ---
The patient has been eating and drinking well. B/P is improved today. The patient joined with the activities for a brief time, after much encouragement. He remains medication compliant and pleasant but has hallucinations, poor impulse control and is responding to internal stimuli . Continuing to monitor VS, monitor for safety and any possible behavior escalation or an increase in bizarre behavior. None noted at this time.
[2021-09-10 16:26] VITALS: BP 94/44
[2021-09-10 20:01] VITALS: BP 99/51
[2021-09-10] MEDS: QUETIAPINE FUMARATE 100 MG TABLET PO SCH (20:27)
--- NOTE | 2021-09-11 06:39 | NUR ---
Patient slept 7 hours.Compliant with medication. Stated he had dark stool this morning. No hematuria.Denies pain or discomfort. Will notify .
--- NOTE | 2021-09-11 07:00 | NUR ---
Called by patient to report his stool was dark .Patient noted with large BM dark and red. Collected .Called MD.Will endorse to oncoming shift.
[2021-09-11 07:41] VITALS: BP 98/62
[2021-09-11] MEDS: PANTOPRAZOLE SODIUM 40 MG TABLET.DR PO SCH ×2 (08:22→16:43)
[2021-09-11] MEDS: NICOTINE 14 MG/24HR PATCH TD SCH (08:22)
[2021-09-11] MEDS: FERROUS SULFATE 325 MG TABEC PO SCH ×2 (08:23→16:43)
[2021-09-11] MEDS: QUETIAPINE FUMARATE 25 MG TABLET PO SCH ×2 (08:23→16:43)
[2021-09-11] MEDS: SUCRALFATE 1 G TABLET PO SCH ×4 (08:23→20:18)
[2021-09-11] MEDS: ENSURE WITH FIBER 237 ML LIQUID (CHOCOLATE) PO SCH (08:24)
--- NOTE | 2021-09-11 09:10 | NUR ---
GPS: Nursing Notes: [facility] Request: Staff placed on 525, copy of 5250 given and explained to patient, staff used [facility] portal to request a certification review hearing, patient informed that a certification review hearing will be done within four days, continue to monitor for safety, continue with treatment plan.
--- NOTE | 2021-09-11 09:58 | NUR ---
GPS: Nursing Notes: Thought Disorder: Patient is awake and responding to his name, impaired judgment, internally preoccupied, responding to internal stimuli by shouting profanities to unseen others, A/Ox3, compliant with his medications, refusing to participate in therapeutic groups today, isolative in his room, unkempt appearance, resistant with nursing care, unable to formulate a viable plan for self care, continue to monitor for safety, continue with treatment plan.
[2021-09-11 10:01] LABS: *OCCULT BLOOD STOOL POSITIVE (NEGATIVE)
--- NOTE | 2021-09-11 11:28 | NUR ---
GPS: Nursing Notes: Abnormal Lab. Result: Dr. Riaz Pinto called through [facility] , but did not call back, Miranda Ramirez, DZE came to the unit and ordered CBC, continue to monitor for safety, B/P=114/66, 103, continue with treatment plan.
--- NOTE | 2021-09-11 11:34 | NUR ---
GPS: Nursing Notes: Abnormal Lab. Result: Dr. Riaz Pinto called back, and he was informed of stool for OB is positive, but no further orders were given, continue to monitor for safety, continue with treatment plan.
[2021-09-11 12:17] LABS: MEAN CORPUSCULAR HEMOGLOBIN 27.6 uug (23.8-33.4); MEAN CORPUSCULAR VOLUME 84.4 fL (73.0-96.2); PLATELET COUNT (AUTO) 528 K/uL (152-348)
[2021-09-11 12:21] LABS: HEMATOCRIT 15.4 % (36.7-47.1)
[2021-09-11 12:33] LABS: NEUTROPHILS % (MANUAL) 0 % (42-75)
--- NOTE | 2021-09-11 13:00 | NUR ---
GPS: Nursing Notes: Critical Lab. Result: Dr. Riaz Pinto called back and stated that he would review the lab. result and put orders in the computer if needed, per Dr. Riaz Pinto, patient is refusing blood transfusion and any other treatment for his condition, continue to monitor for safety, continue with treatment plan.
[2021-09-11] MEDS ORDERED: SUCRALFATE 1 G/10 ML LIQUID UDC PO SCH (13:30)
[2021-09-11] MEDS ORDERED: EPOETIN ALFA 20,000 UNIT/ML ML SQ ONE (14:30)
--- NOTE | 2021-09-11 14:53 | NUR ---
JAILYN Initial Discharge Note: Pt is admitted to [facility] on a 5150 hold for gravely disabled adult. Pt stated he is currently homeless. Pt stated he has no family or friends to contact. Pt is agreeable to a group home facility or assisted upon discharge. JAILYN will continue to work with pt, family and MD to ensure a safe and proper discharge plan.
[2021-09-11 16:05] VITALS: BP 90/51
[2021-09-11] MEDS ORDERED: SUCRALFATE 1 G TABLET PO SCH (16:30)
[2021-09-11 20:04] VITALS: BP 96/57
[2021-09-11] MEDS: QUETIAPINE FUMARATE 100 MG TABLET PO SCH (20:18)
[2021-09-11] MEDS: ACETAMINOPHEN 325 MG TABLET PO PRN (20:18)
[2021-09-11] MEDS: ZOLPIDEM 5 MG TABLET PO PRN (21:06)
--- NOTE | 2021-09-12 05:16 | NUR ---
GPS NOTES: Patient in his room upon the start of the shift. Isolative, withdrawn and depressed behavior. Patient A/OX3. Ambulatory. Patient to be pale looking. Skin warm to touch. Initial temp 99.8. Tylenol given. Patient states of not feeling well and unable to sleep. Talked to patient on the result of his dangerously low H&H, educated on the benefits of blood transfusion to improve his H&H. Patient actively listening and states "No blood product for me, I will make the decision later". Denies hallucination at the moment. Constantly asking for snacks. Restoril given. Patient slept intermittently. closely monitoring observed. safaty measure in place. Addendum: 09/12/21 at 0530 by OSVALDO SAUCEDO RN AMBIEN was given vs Restoril
[2021-09-12 06:40] LABS: HEMATOCRIT 15.1 % (36.7-47.1)
[2021-09-12] MEDS: SUCRALFATE 1 G TABLET PO SCH ×4 (07:58→20:25)
[2021-09-12] MEDS: FERROUS SULFATE 325 MG TABEC PO SCH ×2 (08:04→17:42)
[2021-09-12] MEDS: NICOTINE 14 MG/24HR PATCH TD SCH (08:04)
[2021-09-12] MEDS: PANTOPRAZOLE SODIUM 40 MG TABLET.DR PO SCH ×2 (08:04→17:42)
[2021-09-12] MEDS: ENSURE WITH FIBER 237 ML LIQUID (CHOCOLATE) PO SCH (08:07)
[2021-09-12] MEDS: QUETIAPINE FUMARATE 100 MG TABLET PO SCH ×3 (08:09→20:25)
--- NOTE | 2021-09-12 13:28 | NUR ---
GPS: Nursing Notes: Thought Disorder: Patient is awake and responding to his name, resistant with nursing care, poor impulse control, internally preoccupied, episodes of responding to internal stimuli by talking to unseen others when he is alone in his room, H&H low, but continue to refuse blood transfusion, compliant with his Procrit, stated "I don't want somebody blood cell in my system.", resistant with nursing cranberry bog supervisor" Addendum: 09/12/21 at 1339 by MONICA MENA LVN Continuation of above charting: Resistant with nursing care, depressed mood and angry affect, unable to formulate a viable plan for self care, unkempt appearance, continue to monitor for safety, continue with treatment plan.
[2021-09-12 15:25] VITALS: BP 126/56
--- NOTE | 2021-09-12 20:00 | NUR ---
Received patient in his room in bed. He is noted sleeping but easily arousable. Patient noted A/O x 2. he is able to verbalized his feelings. Patient stated that he continue hearing voices and seen people. he stated, "I can't make up what the voices are saying". Patient continue Isolative and withdrawn. He denied SI/HI. He stated that, "I only have schizophrenia". Patient is aware of his low H and H; however, he continue refusing blood transfusions. Patient is in no distress, V/S stable at this time. Patient is reassured for his safety. safety and fall precaution in place. V/S, he was given PO Fluids and snacks. Patient was able to take ensure. will continue to monitor.
[2021-09-12 20:02] VITALS: BP 101/57
[2021-09-13 07:30] VITALS: BP 120/71
--- NOTE | 2021-09-13 07:31 | NUR ---
PATIENT SLEPT FOR APPROX 6.30 HRS THROUGH THE NIGHT. HE WAS OBSERVED TALKING TO HIMSELF AT TIMES. WILL CONTINUE TO [id number].
[2021-09-13 07:59] LABS: HEMATOCRIT 16.4 % (36.7-47.1)
[2021-09-13] MEDS ORDERED: diphenhydrAMINE 50 MG/1 ML VIAL IM ONE (08:37)
[2021-09-13] MEDS ORDERED: HALOPERIDOL LACTATE 5 MG/1 ML VIAL IM ONE (08:37)
--- NOTE | 2021-09-13 08:57 | NUR ---
Patient became agitated, aggressive, combative, striking out at others, violent. Dr. Evans was on the floor and prescribed Haldol 5 mg IM, Benadryl 25 mg IM at 08:57, right and left deltoid, will be monitored for effectiveness. Security was called and five people were necessary to hold the patient, but not force was needed. Reassurance given. Fall and safety precautions implemented.
[2021-09-13] MEDS: ENSURE WITH FIBER 237 ML LIQUID (CHOCOLATE) PO SCH (09:00)
[2021-09-13] MEDS: SUCRALFATE 1 G TABLET PO SCH ×4 (09:33→20:27)
[2021-09-13] MEDS: FERROUS SULFATE 325 MG TABEC PO SCH ×2 (09:34→17:23)
[2021-09-13] MEDS: QUETIAPINE FUMARATE 100 MG TABLET PO SCH ×3 (09:34→20:25)
[2021-09-13] MEDS: PANTOPRAZOLE SODIUM 40 MG TABLET.DR PO SCH ×2 (09:34→17:23)
[2021-09-13] MEDS: NICOTINE 14 MG/24HR PATCH TD SCH (09:34)
[2021-09-13] MEDS: ACETAMINOPHEN 325 MG TABLET PO PRN (10:53)
--- NOTE | 2021-09-13 11:03 | NUR ---
Patient is given Tylenol 650 mg at 10:53 for headache, will be monitored for effectiveness.
--- NOTE | 2021-09-13 15:18 | NUR ---
Received patient awake in his room. A/O X 3 to person, place. Pt. states "I can't keep up with so many voices. It's not easy to be schizophrenic". Pt. states AH. Pt. is short temper, slams the door at times, poor judgement and self control. Pt. Hgb is 5.3 and Hct is 16.4, but patient does not want blood transfusion and states " I don't want any blood products inside my body". Pt. denies being Jehova's Witness. Data Keyer is aware of it and prescribed Epoetin 20.000 unit/ml SQ every Saturday starting on 09/18/21. Pt. has unsteady gait, does not allow to be helped. Emotional support provided. Fall and safety precautions implemented.
[2021-09-13 16:00] VITALS: BP 118/82
[2021-09-13 19:52] VITALS: BP 107/68
--- NOTE | 2021-09-13 21:13 | NUR ---
Received patient awake in his room. A/O X 3 Pt.noted with internal stimuli.Patient is unpredictable, poor judgement and poor self control. Patient is isolative to room, denies SI. Patient complaint with medication. Patient in no apparent distress. Safety measures rendered, bed in lowest position, bed locked, and bed alarm on while in bed.
[2021-09-13] MEDS: ZOLPIDEM 5 MG TABLET PO PRN (22:04)
[2021-09-14] MEDS: SUCRALFATE 1 G TABLET PO SCH ×4 (06:43→20:11)
[2021-09-14 07:30] VITALS: BP 118/80
[2021-09-14] MEDS: QUETIAPINE FUMARATE 100 MG TABLET PO SCH ×2 (08:43→20:11)
[2021-09-14] MEDS: PANTOPRAZOLE SODIUM 40 MG TABLET.DR PO SCH ×3 (08:43→16:13)
[2021-09-14] MEDS: ENSURE WITH FIBER 237 ML LIQUID (CHOCOLATE) PO SCH (08:43)
[2021-09-14] MEDS: NICOTINE 14 MG/24HR PATCH TD SCH ×2 (08:43→09:31)
[2021-09-14] MEDS: FERROUS SULFATE 325 MG TABEC PO SCH ×3 (08:45→16:13)
[2021-09-14] MEDS ORDERED: diphenhydrAMINE 25 MG CAP PO PRN (09:00)
[2021-09-14 09:25] LABS: HEMATOCRIT 20.1 % (36.7-47.1)
--- NOTE | 2021-09-14 15:42 | NUR ---
Gps/Lard Bleacher- Isolative, staying in bed, in his room most of the day, encouraged participation in his group therapy.Compliant with his routine medications. Patient kept closing his door, discouraged from doing so. Requesting to received double portion of food servings during meals, dietary was informed. H/H 6.3/20.1 as of today Medical group aware of the trending low H&H.
[2021-09-14 16:00] VITALS: BP 108/48
[2021-09-14] MEDS: HALOPERIDOL 5 MG TABLET PO SCH (16:43)
[2021-09-14] MEDS: LORAZEPAM 1 MG TABLET PO PRN (20:11)
[2021-09-14 20:40] VITALS: BP 98/63
[2021-09-14] MEDS: ZOLPIDEM 5 MG TABLET PO PRN (22:03)
--- NOTE | 2021-09-15 01:27 | NUR ---
GPS NOTE: At the start of the shift, the patient was at the station yelling at the FABRIC FINISHER about wanting more food. The stormed back to his room and slammed the door. This investment underwriter was able to calm patient down and set some boundaries regarding his behavior and lack impulse control. Snacks were later provided and the patient has been medication compliant. Continuing to monitor for further behavior escalation. Safety Stratiges are in place. B/P remains low, pulse is normal. No active signs of bleeding noted at this time.
--- NOTE | 2021-09-15 05:12 | NUR ---
Patient is up early asking for food. Total sleep hours were 8.15. A shower was offered but the patient refused at this time. Safety Stratiges are in place and will continue to monitor for behavior escalation and labile moods.
[2021-09-15] MEDS: PANTOPRAZOLE SODIUM 40 MG TABLET.DR PO SCH ×2 (06:03→16:57)
[2021-09-15] MEDS: SUCRALFATE 1 G TABLET PO SCH ×4 (06:04→20:26)
[2021-09-15 07:30] VITALS: BP 117/72
[2021-09-15] MEDS: ENSURE WITH FIBER 237 ML LIQUID (CHOCOLATE) PO SCH (08:53)
[2021-09-15] MEDS: FERROUS SULFATE 325 MG TABEC PO SCH ×2 (08:53→16:56)
[2021-09-15] MEDS: NICOTINE 14 MG/24HR PATCH TD SCH (08:53)
[2021-09-15] MEDS: HALOPERIDOL 5 MG TABLET PO SCH ×3 (08:53→16:57)
--- NOTE | 2021-09-15 09:15 | NUR ---
JAILYN Discharge Update: Pt is currently homeless. Pt stated to JAILYN he is agreeable to a halfway facility upon discharge. JAILYN is in communication with the MD to ensure a safe and proper placement for the pt upon discharge. Per pt, he does not have any family contact.
[2021-09-15 10:13] LABS: HEMATOCRIT 21.6 % (36.7-47.1)
[2021-09-15] MEDS: LORAZEPAM 1 MG TABLET PO PRN (11:15)
--- NOTE | 2021-09-15 11:17 | NUR ---
Gps/Pest Control Service Representative- Todays labs. H/L 6.5/21.6 , compliant with routine am meds. Patient kept asking to eatra foods , provided ensures and jello. discouraged patient from closing his door, monitor safety , needs, behavior.
[2021-09-15 16:34] VITALS: BP 110/65
[2021-09-15 20:10] VITALS: BP 94/56
[2021-09-15] MEDS: QUETIAPINE FUMARATE 100 MG TABLET PO SCH (20:26)
[2021-09-15] MEDS: ZOLPIDEM 5 MG TABLET PO PRN (21:21)
--- NOTE | 2021-09-16 04:39 | NUR ---
GPS NOTES: Patient in his room upon start of the shift, A&0x3, unkempt, remains responsive to verbal stimuli. Denies SI. V/S w/in normal. No respiratory distress noted. No bleeding noted. Snacks provided w/ good appetite. Isolative, depressed and avoidance. Remains med compliant. No agitation noted during shift. Ambien given as per patients request. Patient slept well.
[2021-09-16] MEDS: SUCRALFATE 1 G TABLET PO SCH ×4 (06:36→20:29)
[2021-09-16 07:31] VITALS: BP 116/78
[2021-09-16] MEDS: HALOPERIDOL 5 MG TABLET PO SCH ×3 (08:05→16:24)
[2021-09-16] MEDS: FERROUS SULFATE 325 MG TABEC PO SCH ×2 (08:05→16:24)
[2021-09-16] MEDS: ENSURE WITH FIBER 237 ML LIQUID (CHOCOLATE) PO SCH (08:06)
[2021-09-16] MEDS: PANTOPRAZOLE SODIUM 40 MG TABLET.DR PO SCH ×3 (08:06→16:25)
[2021-09-16] MEDS: NICOTINE 14 MG/24HR PATCH TD SCH (08:06)
[2021-09-16 09:31] LABS: HEMATOCRIT 18.7 % (36.7-47.1)
--- NOTE | 2021-09-16 09:38 | NUR ---
Gps/Wood Milling Machine Tender- Lab. called report received trending low H&H 6.0& 18.7 Medical group had been aware.
[2021-09-16] MEDS ORDERED: EPOETIN ALFA 10,000 UNITS/ML VIAL SQ ONE (11:15)
[2021-09-16 16:08] VITALS: BP 111/70
[2021-09-16 19:54] VITALS: BP 98/55
[2021-09-16] MEDS: QUETIAPINE FUMARATE 100 MG TABLET PO SCH (20:29)
[2021-09-16] MEDS: LORAZEPAM 1 MG TABLET PO PRN (20:29)
--- NOTE | 2021-09-17 05:24 | NUR ---
The patient stayed in his room the entire shift except when asking for food. This patient is hungry all of the time. He isolates and does not engage with peers or staff. The room is messy, the patient throws trash on the floor and has been refusing to shower for the last 4 days. He is medication compliant, but refuses to have a blood products for his anemia. VS are being monitored closely. B/P remains low, HR 100. No s/s of active bleeding at this time. Safety Stratiges are in place.
[2021-09-17] MEDS: PANTOPRAZOLE SODIUM 40 MG TABLET.DR PO SCH ×2 (06:11→16:45)
[2021-09-17] MEDS: SUCRALFATE 1 G TABLET PO SCH ×4 (06:11→20:09)
[2021-09-17 07:41] LABS: HEMATOCRIT 21.2 % (36.7-47.1); MEAN CORPUSCULAR HEMOGLOBIN 26.7 uug (23.8-33.4); MEAN CORPUSCULAR VOLUME 85.2 fL (73.0-96.2); PLATELET COUNT (AUTO) 586 K/uL (152-348)
[2021-09-17 07:46] LABS: CARBON DIOXIDE 29 mmol/L (21-32); CHLORIDE 104 mmol/L (98-107); CREATININE 0.6 mg/dL (0.6-1.3); GLUCOSE 105 mg/dL (74-106); POTASSIUM 4.5 mmol/L (3.5-5.1); UREA NITROGEN, BLOOD 17 mg/dL (7-18)
[2021-09-17] MEDS: NICOTINE 14 MG/24HR PATCH TD SCH (08:23)
[2021-09-17] MEDS: FERROUS SULFATE 325 MG TABEC PO SCH ×2 (08:23→16:44)
[2021-09-17] MEDS: ENSURE WITH FIBER 237 ML LIQUID (CHOCOLATE) PO SCH (08:24)
[2021-09-17] MEDS: HALOPERIDOL 5 MG TABLET PO SCH ×2 (08:24→16:47)
--- NOTE | 2021-09-17 09:30 | NUR ---
Gps/Entertainment Lawyer- Patient requesting an early shower, was able to showered self ind. after set up. Adequate nutritional intake eating 100 % of his meals and requesting double portions and having snacks in between. Still refusing to participate in his group therapy , complained of feeling cold, offered extra blanket.
[2021-09-17 19:46] VITALS: BP 103/66
[2021-09-17] MEDS: QUETIAPINE FUMARATE 100 MG TABLET PO SCH (20:09)
[2021-09-17] MEDS: LORAZEPAM 1 MG TABLET PO PRN (20:09)
--- NOTE | 2021-09-18 05:12 | NUR ---
The patient has been requesting large amounts of food, frequently. This is the only time the patient will leave his room. Sleep hours were 5.45 last night. Safety Stratiges remain in place and VS are stable at this time. No behavioral issues demonstrated this shift and no noted responding to internal stimuli. The patient continues to be depressed and withdrawn. He does not show any interaction with his peers and choses to isolate himself despite being given encouragement to eat in the day room.
[2021-09-18] MEDS: SUCRALFATE 1 G TABLET PO SCH ×4 (06:16→21:49)
[2021-09-18] MEDS: PANTOPRAZOLE SODIUM 40 MG TABLET.DR PO SCH ×2 (06:16→17:02)
[2021-09-18 07:00] LABS: HEMATOCRIT 18.3 % (36.7-47.1)
[2021-09-18 07:36] VITALS: BP 108/76
[2021-09-18] MEDS: FERROUS SULFATE 325 MG TABEC PO SCH ×2 (08:33→17:02)
[2021-09-18] MEDS: NICOTINE 14 MG/24HR PATCH TD SCH (08:33)
[2021-09-18] MEDS: HALOPERIDOL 5 MG TABLET PO SCH ×2 (08:33→17:02)
[2021-09-18] MEDS: ENSURE WITH FIBER 237 ML LIQUID (CHOCOLATE) PO SCH (08:34)
--- NOTE | 2021-09-18 13:45 | NUR ---
GPS: Nursing Notes: Thought Disorder: Patient is awake and responding to his name, isolative and withdrawn in his room, no interactions with peers, refusing to participate in therapeutic groups, gets easily irritable when redirected, episode of mumbling to self in her room, but denying internal stimuli, showered today with a lot of prompting, A/Ox2-3, reoriented and redirected during shift, unable to formulate a viable plan for self care, continue to monitor for safety, continue with treatment plan .
[2021-09-18] MEDS ORDERED: EPOETIN ALFA 20,000 UNIT/ML ML SQ SCH (14:00)
[2021-09-18 16:11] VITALS: BP 91/61
[2021-09-18 19:51] VITALS: BP 100/64
[2021-09-18] MEDS: QUETIAPINE FUMARATE 100 MG TABLET PO SCH (21:49)
[2021-09-18] MEDS: ZOLPIDEM 5 MG TABLET PO PRN (21:50)
[2021-09-19] MEDS: LORAZEPAM 1 MG TABLET PO PRN (02:56)
[2021-09-19] MEDS: SUCRALFATE 1 G TABLET PO SCH ×4 (06:53→22:31)
[2021-09-19] MEDS: PANTOPRAZOLE SODIUM 40 MG TABLET.DR PO SCH ×2 (06:55→17:10)
[2021-09-19 07:30] VITALS: BP 112/77
[2021-09-19 08:02] LABS: HEMATOCRIT 19.6 % (36.7-47.1)
[2021-09-19] MEDS: ENSURE WITH FIBER 237 ML LIQUID (CHOCOLATE) PO SCH (08:49)
[2021-09-19] MEDS: HALOPERIDOL 5 MG TABLET PO SCH ×2 (08:49→17:10)
[2021-09-19] MEDS: FERROUS SULFATE 325 MG TABEC PO SCH ×2 (08:49→17:10)
[2021-09-19] MEDS: NICOTINE 14 MG/24HR PATCH TD SCH (08:49)
--- NOTE | 2021-09-19 12:39 | NUR ---
GPS: Nursing Notes: Thought Disorder: Patient is awake and responding to his name, isolative and withdrawn in his room, internally preoccupied, unable to formulate a viable plan for self care, resistant with nursing care, refusing to participate in therapeutic groups, but agreed to go outside to the patio for fresh air, A/Ox4, believes that he is getting better, mumbling to unseen others at times, continue to monitor for safety, denies SI/HI, unkempt appearance, continue with treatment plan.
[2021-09-19 15:13] VITALS: BP 107/65
--- NOTE | 2021-09-19 16:18 | NUR ---
JAILYN Coordination of Care: Maternal Child Nurse faxed patient's referral packet including: History and Physical, Consultation, Progress Notes, Medication List and Labs to the following facilities for review and possible detention placement: [address] [address] ([phone]).
[2021-09-19 19:48] VITALS: BP 110/62
[2021-09-19] MEDS: ZOLPIDEM 5 MG TABLET PO PRN (22:32)
[2021-09-19] MEDS: QUETIAPINE FUMARATE 100 MG TABLET PO SCH (22:32)
[2021-09-20 07:30] VITALS: BP 111/72
[2021-09-20] MEDS: FERROUS SULFATE 325 MG TABEC PO SCH ×2 (08:31→17:00)
[2021-09-20] MEDS: SUCRALFATE 1 G TABLET PO SCH ×4 (08:32→20:55)
[2021-09-20] MEDS: PANTOPRAZOLE SODIUM 40 MG TABLET.DR PO SCH ×2 (08:32→17:00)
[2021-09-20] MEDS: HALOPERIDOL 5 MG TABLET PO SCH ×2 (08:32→17:00)
[2021-09-20] MEDS: ENSURE WITH FIBER 237 ML LIQUID (CHOCOLATE) PO SCH (08:33)
[2021-09-20] MEDS: NICOTINE 14 MG/24HR PATCH TD SCH (08:34)
--- NOTE | 2021-09-20 09:42 | NUR ---
GPS: PT ISOLATIVE AND STAYING INSIDE THE ROOM. HAD A GOOD BREAKFAST. NO AGITATION AT THIS TIME. PT DENIES PAIN OR DISCOMFORT. COMPLIANT WITH MEDS. UNABLE TO PLAN FOR SELF CARE.
[2021-09-20 16:00] VITALS: BP 99/62
--- NOTE | 2021-09-20 18:34 | NUR ---
GPS: PT ISOLATIVE, STAYED IN THE ROOM THE WHOLE TIME. ENCOURAGED TO ATTEND GROUP THERAPY BUT REFUSED AFTER EXPLAINING THE BENEFIT OF ATTENDING. NO AGITATION NOTED AT THIS TIME. PT COMPLIANT WITH MEDS.
[2021-09-20 20:00] VITALS: BP 101/66
[2021-09-20] MEDS: QUETIAPINE FUMARATE 100 MG TABLET PO SCH (20:37)
--- NOTE | 2021-09-21 05:58 | NUR ---
Received to care, lying in bed. Pleasant upon approach. Denied any psychotic symptoms, but appeared distracted by internal stimuli. Compliant with medications, bedtime snack and fluids were given. Slept all night. No distress noted.
[2021-09-21] MEDS: PANTOPRAZOLE SODIUM 40 MG TABLET.DR PO SCH ×2 (07:05→17:20)
[2021-09-21 07:47] VITALS: BP 115/68
[2021-09-21] MEDS: SUCRALFATE 1 G TABLET PO SCH ×4 (08:37→20:14)
[2021-09-21] MEDS: HALOPERIDOL 5 MG TABLET PO SCH ×2 (08:37→17:20)
[2021-09-21] MEDS: NICOTINE 14 MG/24HR PATCH TD SCH (08:37)
[2021-09-21] MEDS: FERROUS SULFATE 325 MG TABEC PO SCH ×2 (08:37→17:21)
[2021-09-21] MEDS: ENSURE WITH FIBER 237 ML LIQUID (CHOCOLATE) PO SCH (08:38)
[2021-09-21] MEDS: ACETAMINOPHEN 325 MG TABLET PO PRN ×2 (14:35→20:14)
--- NOTE | 2021-09-21 14:36 | NUR ---
Patient is given Tylenol 650 mg at 14:35 for headache, will be monitored for effectiveness.
--- NOTE | 2021-09-21 16:06 | NUR ---
Received patient sleeping in his room. A/O X 2-3 to person, place. Pt. is withdrawn, isolative, depressed, low energy. Pt. was having internal responding in the shower "I told you to shut the fuck up. You never mind your business. I'm sick and tired of you". Pt. is complaint with medications. Pt. is encourage to verbalize feelings and emotions. Fall and safety precautions implemented.
[2021-09-21 16:20] VITALS: BP 114/60
[2021-09-21] MEDS: LORAZEPAM 1 MG TABLET PO PRN (20:14)
[2021-09-21] MEDS: QUETIAPINE FUMARATE 100 MG TABLET PO SCH (20:14)
[2021-09-22] MEDS: PANTOPRAZOLE SODIUM 40 MG TABLET.DR PO SCH (06:19)
[2021-09-22] MEDS: SUCRALFATE 1 G TABLET PO SCH ×2 (06:19→12:19)
--- NOTE | 2021-09-22 06:57 | NUR ---
Patient slept 7.15 hours. Possible discharge today. No issues during the night. Patient calm and cooperative.
[2021-09-22 07:42] VITALS: BP 109/77
[2021-09-22] MEDS: NICOTINE 14 MG/24HR PATCH TD SCH (09:32)
[2021-09-22] MEDS: HALOPERIDOL 5 MG TABLET PO SCH (09:32)
[2021-09-22] MEDS: FERROUS SULFATE 325 MG TABEC PO SCH (09:32)
[2021-09-22] MEDS: ENSURE WITH FIBER 237 ML LIQUID (CHOCOLATE) PO SCH (09:32)
--- NOTE | 2021-09-22 10:00 | NUR ---
Received patient sleeping in his room. A/O X 2-3 to person, place. Pt. is withdrawn, confinding, excited to be discharged. Pt. is cooperative with nursing care and complaint with medications. Emotional support provided. Fall and safety precautions implemented.
--- NOTE | 2021-09-22 11:14 | NUR ---
JAILYN Discharge Note: Pt will be discharged to [facility] [address] [place] [address] ([phone]) via ambulance transportation at 1PM. JAILYN spoke with admin coordinator, Giorgio and PRIMITIVO at the facility who states they are ready to accept the patient today. Pt is aware and agreeable with discharge plans. Pt does not have any family contact. Pt is alert and oriented x3, is unable to plan for self-care at this time; however, is willing to accept care at SNF. Pt denies any suicidal or homicidal ideation. Pt will follow-up at the facility with Psychiatrist, Dr. Evans and Train Brake Operator, Dr. Cotto. Pt presents with calm mood and congruent affect. [facility]: [facility] ([phone]) [address] [place] [address].
--- NOTE | 2021-09-22 13:18 | NUR ---
Received orders to discharge this patient to [facility], by [facility]. Report was given to Ni RODRIGUEZ. Patient was agreeable to discharge plans. All belongings were returned to patient. Patient denies SI/HI AH/VH, SOB, or any pain or discomfort. Reassurance given. Fall and safety precautions implemented. Addendum: 09/22/21 at 1322 by EDUARDO LEIVA RN Patient left the unit at 13:15.
== END 2021-09-22 13:15 | DRG 885 ==
LOC: ER 15:08 → GPS 21:54
PROVIDERS: ADMIT Psychiatry & Neurology Psychiatry; ATTEND Nurse Practitioner Acute Care
DX: F20.0 Paranoid schizophrenia (principal); E43 Unspecified severe protein-calorie malnutrition; K29.71 Gastritis, unspecified, with bleeding; K20.91 Esophagitis, unspecified with bleeding; D62 Acute posthemorrhagic anemia; Z68.1 Body mass index [BMI] 19.9 or less, adult; F32.A Depression, unspecified; R62.7 Adult failure to thrive; Z87.891 Personal history of nicotine dependence; F29 Unspecified psychosis not due to a substance or known physiological condition; Z91.19 Patient's noncompliance with other medical treatment and regimen; Z59.00 Homelessness unspecified; Z20.822 Contact with and (suspected) exposure to COVID-19
CPT/HCPCS: 36415; 70030-TC; 85018; 85025; 97161; A4663; J0885; J1200; J1630; Q0163